=== PATIENT | female | born 1975 | race Two or more races ===

== ENCOUNTER 2016-06-05 18:26 | Emergency (ER) | payer OTHER ==
[2016-06-05] MEDS ORDERED: VENLAFAXINE HC150 M3 PO (19:14)
[2016-06-05] MEDS ORDERED: EFFEXOR XR75 M1 PO (19:15)
[2016-06-05] MEDS ORDERED: TRAZODONE HCL100 M1 PO (19:15)
[2016-06-05] MEDS ORDERED: VENLAFAXINE H37.5 M3 PO (19:15)
[2016-06-05] MEDS ORDERED: AMBIEN5 M1 PO (19:16)
[2016-06-05] MEDS ORDERED: ADDERALL 2020 MG/TAB PO (19:16)
[2016-06-05] MEDS ORDERED: SUMATRIPTAN (19:17)
[2016-06-05] MEDS ORDERED: BENTYL10 M1 PO (19:18)
[2016-06-05] MEDS ORDERED: KLONOPIN1 M1 PO (19:18)
[2016-06-05] MEDS ORDERED: PRAZOSIN (19:22)
[2016-06-05 19:24] LABS: BASO % 0.8 % (0-2); BASO ABSOLUTE COUNT 0.1 tho/cmm (0.0-0.2); EOS % 2.3 % (0-7); EOSINOPHIL ABSOLUTE COUNT 0.1 tho/cmm (0.0-0.7); HCT-HEMATOCRIT 37.1 % (34.0-49.0); HGB-HEMOGLOBIN 13.2 gm/dl (12.0-15.5); IMMATURE GRANULOCYTES ABSOLUTE 0.08 tho/cmm (0-0.03); IMMATURE GRANULOCYTES PERCENT 1.3 % (0-0.3); LYMPH ABSOLUTE COUNT 1.8 tho/cmm (0.8-4.5); MCH (MEAN CORPUSCULAR HGB) 30.7 pg (28.0-32.0); MCHC MEAN CORPUSCULAR HGB CONC 35.6 % (32.0-36.0); MCV (MEAN CELL VOLUME) 86.3 fl (82.0-96.0); MEAN PLATELET VOLUME 11.3 cmc (9.4-12.4); MONOCYTE ABSOLUTE COUNT 0.5 tho/cmm (0.0-1.2); NEUTROPHIL ABSOLUTE COUNT 3.5 tho/cmm (1.6-8.0); NEUTROPHIL-AUTOMATED 3.5 tho/cmm (1.6-8.0); NEUTROPHILS % 57.6 % (40-80); PLATELET COUNT 268 tho/cmm (150-450); RED CELL DISTRIBUTION WIDTH 13.5 % (12.4-16.4)
[2016-06-05 19:39] LABS: ALB/GLOB RATIO 0.9 (0.8-2.0); ALBUMIN 3.8 g/dl (3.5-5.0); ALKALINE PHOSPHATASE 64 U/L (33-138); ALT/SGPT 23 U/L (12-78); ANION GAP 14 mmol/L (0-20); AST/SGOT 22 U/L (10-40); BILIRUBIN,TOTAL 0.4 mg/dl (0-1.5); BLOOD UREA NITROGEN 14 mg/dl (6-24); CALCIUM 8.3 mg/dl (8.5-10.5); CARBON DIOXIDE-VENOUS 21 mmol/L (22-32); CHLORIDE 106 mmol/l (96-110); CREATININE 0.66 mg/dl (0.50-1.10); GLUCOSE 79 mg/dL (70-110); POTASSIUM 3.7 mmol/L (3.7-5.1); SODIUM 137 mmol/L (135-145); eGFR VALUE FOR BLACK >90 mL/Min
[2016-10-09] MEDS ORDERED: AMOX-CLAV 500-1 EACH (23:10)
[2016-10-09] MEDS ORDERED: KEFLEX500 M4 PO (23:11)
[2016-10-09] MEDS ORDERED: CELEXA20 M2 PO (23:16)
[2016-10-09] MEDS ORDERED: KLONOPIN0.5 M1 PO (23:17)
[2016-10-09] MEDS ORDERED: COLESTID1 GM PO (23:18)
[2016-10-09] MEDS ORDERED: ADDERALL 2020 MG/TAB PO (23:19)
[2016-10-09] MEDS ORDERED: DICLOFENAC SODI50 M1 PO (23:20)
[2016-10-09] MEDS ORDERED: BENTYL10 M1 (23:21)
[2016-10-09] MEDS ORDERED: [UNRECOGNIZED DRUG - OTHER] (23:21)
[2016-10-09] MEDS ORDERED: ATIVAN0.5 M1 PO (23:23)
[2016-10-09] MEDS ORDERED: HYDROXYZINE HCL25 M1 PO (23:23)
[2016-10-09] MEDS ORDERED: IMITREX100 M2 PO (23:26)
[2016-10-09] MEDS ORDERED: EFFEXOR XR75 M1 PO ×2 (23:28→23:40)
== END 2016-06-05 20:50 ==
LOC: EDMED 18:26
PROVIDERS: Emergency Medicine
DX: R53.1 Weakness (principal)
CPT/HCPCS: G0480; J2060; J7030